=== PATIENT | male | born 1965 | race American Indian/Alaskan Native ===

== ENCOUNTER 2021-02-11 11:10 | Outpatient (CLI) | payer OTHER ==
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
== END 2021-02-11 11:11 | disposition home or self-care (01) ==
LOC: PF 11:10
PROVIDERS: ATTEND Internal Medicine
DX: R06.02 Shortness of breath (principal); M54.5 Low back pain; R59.0 Localized enlarged lymph nodes
CPT/HCPCS: 71046; 94010; 94729